=== PATIENT | male | born 1955 | race Caucasian/White ===

== ENCOUNTER 2019-11-20 11:20 | Emergency (ER) | payer BC, SELFPAY ==
--- NOTE | ~2019-11-20 | XR_ITS ---
EXAMINATION: XR chest 2V DATE: 11/20/2019 11:43 INDICATION: Cough. TECHNIQUE: Frontal and lateral views of the chest were obtained. COMPARISON: Chest 2 views 10/09/2017, chest CT 10/09/2017 FINDINGS: There is chronic elevation of right hemidiaphragm. There is chronic atelectasis at right itz ng base. There are mild airspace opacities in right midlung zone. No pleural effusion or pneumothorax . The heart size is normal. There is a thoracotomy defect in right eighth rib. IMPRESSION: 1. New mild airspace opacities in right midlung zone, consistent with atelectasis versus pneumonia. 2. Chronic mild elevation of right hemidiaphragm with chronic mild atelectasis at right lung base. Reviewed, dictated and finalized at location A. N AND [employer] SUPER[employer]OR IMPRESSION: 1. New mild airspace opacities in right midlung zone, consistent with atelectas is versus pneumonia. 2. Chronic mild elevation of right hemidiaphragm with chronic mild atelectasis at right lung base.
--- NOTE | 2019-11-20 11:25 | ED.URI ---
HPI - URI/Sore Throat General Chief Complaint: Upper Respiratory Infection Stated Complaint: cough/sore throat Time Seen by Provider: 11/20/19 11:25 Source: patient and RN notes reviewed History of Present Illness HPI Narrative: Patient is a 64-year-old male that presents the urgent care with complaints of sore throat and cough. Patient states he has had a cough, sinus congestion, low-grade fevers intermittently for the last week and developed a sore throat last night. 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 Patient states that since then he has had pneumonia a handful of times. Patient states that his PCP referred him to the urgent care because they were unable to see him. Patient reports of intermittent shortness of breath and wheezing and states that he feels more short of breath with exertion. Patient states that in the past when he had pneumonia he felt very anxious . Patient does not have those-like symptoms at this time. No other acute complaints. No acute distress noted. Patient aware of the plan of care. Related Data Home Medications Medication Instructions Recorded Confirmed atorvastatin 20 mg PO DAILY 08/10/19 11/20/19 finasteride 5 mg PO DAILY 08/10/19 11/20/19 umeclidinium-vilanterol [Anoro 1 inh INHALATION DAILY 08/10/19 11/20/19 Ellipta] albuterol sulfate 90 mcg/actuation 1 inhalation INHALATION Q4-6H PRN 09/30/19 11/20/19 breath activated powder inhaler,sensor esomeprazole magnesium 40 mg 40 mg PO DAILY 09/30/19 11/20/19 capsule,delayed release Allergies Allergy/AdvReac Type Severity Reaction Status Date / Time No Known Allergies Allergy Unverified 11/20/19 11:42 Review of Systems Review of Systems: Narrative: CONSTITUTIONAL: Reports of fevers EYES: Denies visual changes, redness, or discharge. ENT: Reports of sinus congestion, sore throat CARDIOVASCULAR: Denies chest pain, palpitations, or edema. RESPIRATORY: Reports of cough with intermittent wheezing and dyspnea GASTROINTESTINAL: Denies abdominal pain, nausea, vomiting, or diarrhea. GENITOURINARY: Denies dysuria or hematuria. SKIN: Denies rash or itching. MUSCULOSKELETAL: Denies back pain, joint pain, or myalgia. NEUROLOGIC: Denies headache, numbness, or weakness. All other systems reviewed are negative, except as documented in HPI. PMFSH Social History Social History Smoking status: Never smoker Alcohol intake: current Comments At the time of my signature, I reviewed and agree with the nursing past medical, surgical, social, and family history. There is no relevant family history pertinent to the patient complaint. Exam Narrative: Exam Narrative: GENERAL: This is a well-nourished, well-developed patient, in no apparent distress. HEAD: normocephalic, atraumatic. EYES: PERRL. Sclera clear/white. Vision is grossly intact. EARS: External ears normal, auditory canals clear and without drainage, TMs normal without perforation. Hearing grossly intact. NOSE: External nose normal with no obvious nasal discharge, nares without redness, no rhinorrhea. THROAT: Mucous membranes moist, posterior pharynx clear. Moderate postnasal drainage NECK: Neck supple, CARDIOVASCULAR: Regular rate and rhythm without murmurs, gallops, or rubs. RESPIRATORY: Clear to auscultation. Slightly diminished right lower lobe SKIN: warm, intact with no suspicious lesions or rash, good texture and turgor. NEURO: awake, alert, and oriented to person, place and time. There were no obvious focal neurologic abnormalities. EXTREMITIES: No clubbing, cyanosis, or edema. Course Vital Signs Vital signs: Vital Signs Temperature 98.8 F 11/20/19 11:33 Pulse Rate 116 H 11/20/19 11:33 Respiratory Rate 20 11/20/19 11:33 Blood Pressure 120/83 11/20/19 11:33 Pulse Oximetry 98 11/20/19 11:33 Temperature 98.8 F 11/20/19 11:33 Pulse Rate 1
[2019-11-20 11:33] VITALS: BP 120/83; PULSE 116; RESP 20; TEMP 37.1; O2SAT 98
== END 2019-11-20 12:02 | disposition home or self-care (01) ==
PROVIDERS: Emergency Provider Nurse Practitioner Family
DX: J18.9 Pneumonia, unspecified organism (principal); E78.00 Pure hypercholesterolemia, unspecified
CPT/HCPCS: 71046; 99213; G0463

== ENCOUNTER → 2019-12-05 13:20 | Outpatient (CLI) | payer BC, SELFPAY ==
--- NOTE | ~2019-12-05 | XR_ITS ---
XR chest 2V 12/05/2019 13:35 Indication: Pneumonia. Procedure: 2 view chest Comparison: Comparison to multiple prior studies sequentially, with oldest reviewed study dated 02/20. Findings: Heart size normal. Chronic right basilar airspace disease. No pleural effusion, edema or pn eumothorax. No acute osseous abnormality. Impression: 1: Chronic right basilar airspace disease, most likely atelectasis or scarring. Atypical infection le ss favored. Reviewed, dictated and finalized at location B. D AND RELEASE MANAGER Impression: 1: Chronic right basilar airspace disease, most likely atelectasis or scarring. Atypical infection less favored.
== END ==
PROVIDERS: PCP Physician Assistant Medical; Visit Provider Physician Assistant Medical
DX: J18.9 Pneumonia, unspecified organism (principal); R91.8 Other nonspecific abnormal finding of lung field
CPT/HCPCS: 71046

== ENCOUNTER → 2019-12-26 12:03 | Outpatient (CLI) | payer BC, SELFPAY ==
--- NOTE | ~2019-12-26 | XR_ITS ---
EXAMINATION: XR chest 2V DATE: 12/26/2019 12:19 INDICATION: Pneumonia, unspecified organism TECHNIQUE: PA and lateral views of the chest are obtained. COMPARISON: 12/05/2019 FINDINGS: There are chronic airspace opacities of the right lung base. No new airspace opacities are identified. Chronic elevation of the right hemidiaphragm is noted. There is no pleural effusion or pn eumothorax. The cardiomediastinal silhouette is normal. There is mild thoracic spondylosis. IMPRESSION: 1. No acute cardiopulmonary abnormality. Reviewed, dictated and finalized at location B.
== END ==
PROVIDERS: PCP Family Medicine; Visit Provider Family Medicine
DX: J18.9 Pneumonia, unspecified organism (principal)
CPT/HCPCS: 71046

== ENCOUNTER 2021-12-28 10:01 | Outpatient (CLI) | payer BC, SELFPAY ==
--- NOTE | ~2021-12-28 | XR_ITS ---
XR shoulder RT min 2V DATE: 12/28/2021 10:23 INDICATION: Increasing right shoulder pain for 6 weeks. Limited range of motion. TECHNIQUE: 4 views COMPARISON: None FINDINGS: No fracture or dislocation, periosteal reaction or bone destruction of the right shoulder. Normal alignment at the, clavicular and glenohumeral joints. IMPRESSION: No significant abnormality Reviewed, dictated and finalized at location A. IMPRESSION: No significant abnormality
== END 2021-12-28 10:02 | disposition home or self-care (01) ==
LOC: ANHIMG 10:06
PROVIDERS: PCP Family Medicine; Visit Provider Physician Assistant Medical
DX: M25.511 Pain in right shoulder (principal)
CPT/HCPCS: 73030

== ENCOUNTER 2022-01-04 06:46 | Outpatient (CLI) | payer BC, SELFPAY ==
--- NOTE | ~2022-01-04 | MR_ITS ---
EXAMINATION: MR shoulder RT wo con DATE: 01/04/2022 07:51 INDICATION: Right shoulder pain TECHNIQUE: Magnetic resonance imaging (MRI) of the right shoulder was performed without intravenous c ontrast. Sequences included axial PD-weighted FS FSE, coronal oblique PD-weighted FS FSE, coronal obl ique T2-weighted FS FSE, sagittal PD-weighted FS FSE, and sagittal T1-weighted SE. COMPARISON: Right shoulder radiographs dated 12/28/2021 FINDINGS: Coracoacromial arch: The acromion undersurface is minimally curved in morphology (type I-II). The coracoacromial ligament is normal. Moderate acromioclavicular osteoarthritis. Rotator cuff: Moderate tendinopathy of the conjoined portion of the supraspinatus and infraspinatus tendons with mi ld tendinopathy in the more anterior supraspinatus and posterior infraspinatus tendons. There is a pa rtial-thickness tear along the superior facet footplate of the conjoined portion of the tendon which measures 12 mm AP at its maximum and involves up to one half of the tendon thickness. The teres minor tendons are normal. Mild subscapularis tendinopathy with small partial-thickness intrasubstance tear involving approximately 10 x 6 mm region at the superolateral aspect of the lesser tuberosity footpl ate. Normal rotator cuff muscle bulk and signal. Biceps tendon, glenoid labrum and glenohumeral cartilage: Long head of the biceps tendon is normal. There is a tear at the base of the posterior inferior labru m extending from the 9:00 position posteriorly to the 5:00 position anteriorly. Tiny paravertebral cy st at the 6:30 position. Partial-thickness cartilage loss at the central to anterior glenoid. There i s underlying focal subarticular cystlike change at the 2:00-3:00 rim of the glenoid. Mild partial-thi ckness cartilage loss with subtle surface regularity along the inferomedial aspect of the humeral hea d. Remaining humeral cartilage appears relatively preserved. Fluid: Physiologic amount of fluid in the glenohumeral joint and biceps tendon sheath. No loose osteochondr al bodies. No abnormal fluid signal in the subacromial/subdeltoid bursa to suggest bursitis. Bones: No fracture or pathologic marrow replacing process. Cystic change along the superior and middle facet s of the greater tuberosity likely related to rotator cuff disease. IMPRESSION: 1. Mild to moderate supraspinatus and infraspinatus tendinopathy greatest at the conjoined portion of the tendon where there is a small, moderate severity intrasubstance tear along the greater tuberosit y footplate. 2. Mild subscapularis tendinopathy with small partial-thickness tear along the superolateral aspect o f the lesser tuberosity footplate. 3. Mild glenohumeral osteoarthritis with tear of the anterior to inferior glenoid labrum. 4. Moderate acromioclavicular osteoarthritis. Reviewed, dictated and finalized at location B. IMPRESSION: 1. Mild to moderate supraspinatus and infraspinatus tendinopathy greatest at th e conjoined portion of the tendon where there is a small, moderate severity int rasubstance tear along the greater tuberosity footplate. 2. Mild subscapularis tendinopathy with small partial-thickness tear along the superolateral aspect of the lesser tuberosity footplate. 3. Mild glenohumeral osteoarthritis with tear of the anterior to inferior gleno id labrum. 4. Moderate acromioclavicular osteoarthritis.
== END 2022-01-04 06:47 | disposition home or self-care (01) ==
PROVIDERS: PCP Family Medicine; Visit Provider Physician Assistant Medical
DX: M25.511 Pain in right shoulder (principal); S46.011A Strain of muscle(s) and tendon(s) of the rotator cuff of right shoulder, initial encounter; M19.011 Primary osteoarthritis, right shoulder
CPT/HCPCS: 73221

== ENCOUNTER 2022-02-23 14:47 | Outpatient (CLI) | payer MEDICARE, BC, SELFPAY ==
--- NOTE | ~2022-02-23 | MR_ITS ---
EXAMINATION: MR cervical spine wo con DATE: 02/23/2022 15:23 INDICATION: Right C5 radicular pain and weakness TECHNIQUE: Magnetic resonance imaging (MRI) of the cervical spine was performed without intravenous c ontrast. Sequences included sagittal T2-weighted FSE, sagittal T2-weighted FS FSE, sagittal T1-weight ed FSE, axial MERGE and axial T2-weighted FSE. COMPARISON: 12/06/2005 FINDINGS: 1 mm retrolisthesis C3 on C4 and 2 mm retrolisthesis C4 on C5. Chronic mild anterior wedging with 20% anterior vertebral body height loss at C6. Annular fissures with moderate disc height loss at C4-C5, C5-C6 and C6-C7 and with mild disc height loss at C3-C4. Bone marrow signal intensity is normal. Cor d signal intensity is normal. Cervical soft tissues are unremarkable. The following disc levels are s pecifically discussed: C2-C3: The disc does not extend beyond the endplate margin. There is mild right uncovertebral joint o steoarthritis. There is mild left and moderate right facet joint osteoarthritis. There is moderate ri ght neural foraminal stenosis. There is no central canal stenosis. C3-C4: Disc is bulging. There is mild bilateral uncovertebral joint osteoarthritis. There is moderate bilateral facet joint osteoarthritis. There is moderate bilateral neural foraminal stenosis. There i s mild central canal stenosis. C4-C5: Disc is bulging. There is moderate left and severe right uncovertebral joint osteoarthritis. T here is moderate right and severe left facet joint osteoarthritis. There is moderate left and severe right neural foraminal stenosis. There is mild central canal stenosis. C5-C6: Disc is bulging There is moderate left and severe right uncovertebral joint osteoarthritis. Th ere is no facet joint osteoarthritis. There is no neural foraminal stenosis. There is no central shayna l stenosis. C6-C7: Disc is bulging. There is moderate right and severe left uncovertebral joint osteoarthritis. T here is moderate bilateral facet joint osteoarthritis. There is moderate bilateral neural foraminal s tenosis. There is mild central canal stenosis. C7-T1: The disc does not extend beyond the endplate margin. There is no uncovertebral joint osteoarth ritis. There is moderate bilateral facet joint osteoarthritis. There is mild right neural foraminal s tenosis. There is no central canal stenosis. IMPRESSION: 1. Interval progression of moderate to severe cervical spondylosis. Reviewed, dictated and finalized at location B.
== END 2022-02-23 14:48 | disposition home or self-care (01) ==
PROVIDERS: PCP Family Medicine; Visit Provider Orthopaedic Surgery
DX: M54.12 Radiculopathy, cervical region (principal); M43.02 Spondylolysis, cervical region
CPT/HCPCS: 72141

== ENCOUNTER 2022-04-05 07:28 | Outpatient (CLI) | payer MEDICARE, BC, SELFPAY ==
--- NOTE | ~2022-04-05 | XR_ITS ---
XR chest 2V 04/05/2022 07:45 Indication: Cough and dyspnea Procedure: 2 view chest Comparison: Comparison to multiple prior studies sequentially, with oldest reviewed study dated 06/2018. Findings: There is chronic right middle and lower lobe airspace consolidation. Heart size normal. No pleural effusion or pneumothorax. No acute osseous abnormality. Impression: 1: Chronic right basilar airspace consolidation with elevation of the right diaphragm. Differential d iagnosis includes atelectasis/scarring and atypical pneumonia. Reviewed, dictated and finalized at location A. Impression: 1: Chronic right basilar airspace consolidation with elevation of the right devonte phragm. Differential diagnosis includes atelectasis/scarring and atypical pneum onia.
== END 2022-04-05 07:29 | disposition home or self-care (01) ==
LOC: ANHIMG 07:31
PROVIDERS: PCP Family Medicine; Visit Provider Family Medicine
DX: R05.9 Cough, unspecified (principal)
CPT/HCPCS: 71046

== ENCOUNTER → 2023-08-02 10:11 | Outpatient (CLI) | payer MEDICARE, BC, SELFPAY ==
--- NOTE | ~2023-08-02 | XR_ITS ---
XR chest 2V DATE: 08/02/2023 10:21 INDICATION: Cough. History of frequent pneumonia. TECHNIQUE: 2 views COMPARISON: 04/05/2022 2 view chest FINDINGS: There is chronic moderate elevation of the right diaphragm and minimal right basilar atelec tasis. The lungs are otherwise clear. No pulmonary vascular congestion or pleural effusion or pneumothorax. Normal heart size. Status post anterior cervical spine surgical fusion. There is mild thoracic dextroscoliosis. IMPRESSION: Chronic elevation of right diaphragm and minimal right basilar atelectasis Interval anterior surgical fusion of cervical spine, otherwise no significant change since 04/05/2022 Reviewed, dictated and finalized at location L. IMPRESSION: Chronic elevation of right diaphragm and minimal right basilar atel ectasis Interval anterior surgical fusion of cervical spine, otherwise no significant c hange since 04/05/2022
== END ==
PROVIDERS: PCP Family Medicine; Visit Provider Family Medicine
DX: R05.9 Cough, unspecified (principal); R91.8 Other nonspecific abnormal finding of lung field; J98.11 Atelectasis
CPT/HCPCS: 71046

== ENCOUNTER 2025-07-21 08:11 | Outpatient (RCR) | payer SELFPAY | END 2025-07-21 23:59 | disposition home or self-care (01) | LOC: ANHAUDIO 08:11 | PROVIDERS: PCP Family Medicine; Visit Provider Family Medicine | DX: Z46.1 Encounter for fitting and adjustment of hearing aid (principal) | CPT/HCPCS: 92593 ==

== ENCOUNTER 2025-08-04 08:58 | Outpatient (CLI) | payer MEDICARE, SELFPAY ==
--- NOTE | ~2025-08-04 | XR_ITS ---
PROCEDURE(S): X-ray right knee minimal 4 views INDICATION(S): Pain COMPARISON(S): 2016 TECHNIQUE: 4 radiographic images were submitted for interpretation. FINDINGS: Bones: There are no fractures seen. There are no destructive lesions or other lesions identified. Joints: There are no dislocations identified. There is moderate osteoarthritic type change of the medial compartment and patellofemoral compartment. Mild such changes in the lateral compartment.. There is a mild degree of joint fluid. IMPRESSION: No acute abnormalities are seen. Osteoarthritic type change and joint fluid Reviewed, dictated and finalized at location A. SMITH IMPRESSION: No acute abnormalities are seen. Osteoarthritic type change and landy nt fluid
== END 2025-08-04 08:59 | disposition home or self-care (01) ==
PROVIDERS: PCP Family Medicine; Visit Provider Family Medicine
DX: M17.11 Unilateral primary osteoarthritis, right knee (principal)
CPT/HCPCS: 73564